=== PATIENT | male | born 1955 | race Caucasian/White ===

== ENCOUNTER 2025-01-21 08:46 | Day surgery (SDC) | payer BC, SELFPAY ==
[2025-01-21] VITALS (9 sets, daily range): BP systolic 127–148; BP diastolic 62–77; BMI 35.1
--- NOTE | 2025-01-21 08:20 | ITS.CL.CATH ---
[facility] - Catheterization
Cardiac Catheterization
Procedure Report:
LEFT AND RIGHT HEART CATHETERIZATION
Date of Procedure: January 21, 2025
Referring: Eric Hernandez MD
PROCEDURES:
1. Left heart catheterization, coronary angiogram.
2. Moderate sedation.
3. Right heart catheterization
INDICATION: Progressive dyspnea on exertion with an abnormal stress test
ACCESS: Right radial artery, 6Fr. sheath, under US guidance.
Right brachial vein, 6 Occitan sheath
HEMODYNAMICS : (mmHg)
RA (m) : 10
RV (s/d,m) :24/4; 8
PA (s/d, m) : 27/13, 19
PCWP (m) : 16
PA saturation: 75.8% on room air
AO saturation: 95.6% on room air
RA saturation: 73.7% on room air
Cardiac Output : 7.8 L/min
Cardiac Index : 3.63 L/min/m-2
Systemic vascular resistance: 427 dsc^(-5)
Pulmonary vascular resistance: 0.51 crouch unit
AO (s/d) : 97/50
LVEDP : 13
No significant gradient across the aortic valve to suggest aortic stenosis.
CORONARY FINDINGS
Dominance: Right
Left Main Trunk (LMT): Large caliber vessel that gives rise to the LAD and LCx branches and is free of angiographic disease.
Left Anterior Descending Artery (LAD): Large caliber vessel that gives off 2 major diagonal branches as it courses along the anterior inter-ventricular groove before wrapping around the cardiac apex. Mid LAD just distal to D1 takeoff has 30%
tubular smooth stenosis. Mid to distal LAD beyond D2 takeoff also has 30% tubular smooth stenosis.
Left Circumflex Artery (LCx): Large caliber vessel that gives off 1 major obtuse marginal (OM) branches as it courses along the atrio-ventricular (AV) groove. There is mild diffuse atherosclerotic plaque.
Right Coronary Artery (RCA): Large caliber dominant vessel that gives rise to the posterior descending artery (RPDA) and postero-lateral ventricular (RPLV) branches distally. There is mild diffuse atherosclerotic plaque.
SEDATION: 37 minutes of procedural sedation was utilized. IV Midazolam and IV Fentanyl were administered. An independent medical director of hospice was present to assist with and help manage the patient's level of consciousness and physiologic status.
RADIATION SUMMARY: Fluoro Time (min): 3.7, Dose (mGy): 418.46, DAP (Gy.cm2) : 26.25
Closure Device: There were no immediate intra-procedural complications. 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
CONCLUSIONS
1. No obstructive coronary artery disease.
2. Very mildly elevated right and left-sided filling pressures with normal cardiac output and very low systemic vascular resistance in the setting of sedation related hypotension procedurally.
3. LVEDP of 13 mmHg.
RECOMMENDATIONS
1. Wean radial band per protocol. Monitor right hand perfusion and for bleeding from the radial site following removal of the vascular-band following trans-radial access.
2. Continue aggressive medical therapy and risk factor modification for secondary CAD prevention.
3. Hydrate with normal saline to mitigate the risk of contrast-induced acute kidney injury.
4. Follow-up with Dr. Eric Hernandez
Copy to: Eirc Hernandez MD
Saba Martino MD, [facility], [facility]
[2025-01-21 09:19] LABS: Hematocrit 41.2 % (39.0-52.0); Hemoglobin 13.4 g/dL (13.0-18.0); Mean Corp Hgb Conc. 32.5 g/dL (33.0-37.0); Mean Corpuscular Volume 84.3 fL (80.0-94.0); Platelet Count 166 10^3/uL (130-400); Red Cell Dist. Width 13.9 % (11.5-14.5)
[2025-01-21] MEDS: LOW STRENGTH ASPIRIN 324 MG PO (10:04)
[2025-01-21 10:11] LABS: Glucose - Point of Care 113 mg/dl (70-99)
[2025-01-21] MEDS: NSS 314 ML IV (10:13)
[2025-01-21] MEDS: LASIX 20 MG IV (14:22)
== END 2025-01-21 16:45 | disposition home or self-care (01) ==
LOC: CATH 08:46
PROVIDERS: ATTENDING PHYSICIAN Internal Medicine Interventional Cardiology; FAMILY PHYSICIAN Family Medicine; OTHER PHYSICIAN Internal Medicine Cardiovascular Disease
DX: R06.09 Other forms of dyspnea (principal); I10 Essential (primary) hypertension; E11.9 Type 2 diabetes mellitus without complications; I49.5 Sick sinus syndrome; I48.19 Other persistent atrial fibrillation; I44.39 Other atrioventricular block; Z87.891 Personal history of nicotine dependence
CPT/HCPCS: 99152; 99153; 82962; 85027; 93460; C1769; C1894; Q9967

== ENCOUNTER 2025-04-02 07:40 | Day surgery (SDC) | payer BC, SELFPAY ==
[2025-03-13 09:57] VITALS: BMI 34.7
[2025-03-13 10:22] LABS: Hematocrit 41.3 % (39.0-52.0); Hemoglobin 13.9 g/dL (13.0-18.0); Mean Corp Hgb Conc. 33.7 g/dL (33.0-37.0); Mean Corpuscular Volume 82.1 fL (80.0-94.0); Nucleated Red Blood Cells % 0 % (-); Platelet Count 192 10^3/uL (130-400); Red Cell Dist. Width 13.6 % (11.5-14.5)
[2025-03-13 10:31] LABS: ALT (SGPT) 24 U/L (0-50); AST (SGOT) 22 U/L (17-59); Albumin 4.5 g/dl (3.5-5.0); Alkaline Phosphatase 66 U/L (38-126); Blood Urea Nitrogen 13 mg/dl (9-20); Calcium 9.8 mg/dl (8.4-10.2); Carbon Dioxide 27 mmol/L (22-30); Chloride 105 mmol/L (98-107); Estimated Creatinine Clearance 118 ml/min; Glucose 112 mg/dl (70-99); Magnesium 2.0 mg/dl (1.6-2.3); Potassium 4.7 mmol/L (3.5-5.1); Sodium 137 mmol/L (135-145); Total Protein 7.2 g/dl (6.3-8.2); eGFR > 60.00
[2025-03-13 10:32] LABS: INR 1.21; PT 15.9 Sec (11.4-14.6)
[2025-04-02] VITALS (11 sets, daily range): BP systolic 105–139; BP diastolic 41–74; BMI 33.9
[2025-04-02 08:58] LABS: Glucose - Point of Care 85 mg/dl (70-99)
--- NOTE | 2025-04-02 10:27 | ITS.CL.ABL ---
Emergency Department Nurse - Ablation
Ablation
Procedure Report:
Primary Director Of Conservation: Dr Eric Hernandez
Procedure Date: 04/02/2025
Patient History:
Patient is a pleasant 69-year-old male with a past medical history significant for hypertension, hyperlipidemia, sleep apnea with CPAP, diabetes mellitus type 2, obesity, sick sinus syndrome with dual-chamber pacemaker, symptomatic persistent atrial
fibrillation.
See H&P for complete details.
Indication:
Symptomatic persistent atrial fibrillation
Arrhythmia Specific History:
Prior Medical Therapies for Rate and Rhythm Control:
[ ] Beta-nettie
X Calcium channel-nettie
[ ] Amiodarone
[ ] Dronederone
[ ] Sotalol
[ ] Flecainide
[ ] Dofetilide
[ ] Options limited by bradycardia
[ ] Options limited by comorbid renal disease
Prior Procedural Therapies for AF/AFL:
[ ] Cardioversion
[ ] Pulmonary Vein Isolation
[ ] Posterior Wall Isolation
[ ] Additional lines (Specify)
[ ] Surgical Wade-MAZE or PVI (Specify)
Procedure Performed:
X AF ablation procedure (62037) -- includes LA/CS pacing, trans-septal, 3D mapping, + ICE
[ ] +IV drug (89475)
[ ] +Other Arrhythmia (80111)
[ ] +Other AF Line/ablation (52281)
Risks and expected recovery has been explained in detail. Alternative options have been explored, and in a shared-decision making fashion we have decided that this was the most appropriate procedure.
Method
NPO status confirmed. Grounding pad applied. Defibrillator pads applied. Continuous surface ECG, pulse oximetry, and blood pressure were monitored. Procedure was performed under general anesthesia, with anesthesia services.
Both groins were clipped, prepped with Chloraprep, and draped in sterile fashion. Time out was called. Local anesthesia administered. The right femoral vein was accessed for catheter placement, using ultrasound guidance (images saved to record),
micro-puncture needle/wire, and modified seldinger technique. 3 sheaths were placed. The following catheters were used:
[ ] Tacticath SE (D/F Curve) ablation catheter
X Viewflex 9Fr ICE catheter
X Inquiry decapolar 6Fr diagnostic catheter
[ ] CRD Hex 6Fr
X FlexCath Contour 10 Fr with PulseSelect PFA Catheter
X Advisor HD Grid Mapping Catheter, SE
[ ] Acuson AcuNav 8 Fr ICE catheter
[ ]Other: [ ]
Intracardiac ultrasound (ICE) was carefully advanced into the right atrium to guide sheath placement over a J-wire, catheter placement, guide trans-septal puncture, identify potential complications, identify anatomic structures and ensure proper
contact between ablation catheter and tissue.
Heparin was given prior to trans-septal puncture. Heparin was given to achieve and maintain a target ACT of 300-400 seconds throughout the procedure.
Careful navigation of patient's chronic device was performed under fluoroscopy ensuring sheaths were not in contact with patient's device wires. Trans-septal access was performed under ICE guidance. The trans-septal puncture was performed with a
SafeSept wire through a Brockenbrough needle assembly through the steerable sheath. The wire was visualized as it entered the LSPV and system advanced under ICE guidance and fluoroscopy into the LA. The Brockenbrough needle assembly, SafeSept wire
and sheath dilator were removed under negative pressure. LA pressure was measured and recorded.
ICE and 3D mapping was performed to identify relevant cardiac structures. A careful 3D map was created to assess for regions of low-voltage and abnormal electrogram signals using HD grid mapping catheter and PulseSelect catheter. Additional mapping
was performed as outlined below.
A 200 J synchronized direct-current cardioversion was performed for religion of sinus rhythm prior to electroanatomic mapping. Following mapping, PulseSelect catheter was advanced over J-wire to the ostium of each vein. Pulmonary vein isolation
was performed with ostial and antral lesions in a circumferential manner. Contact was visualized via EAM, ICE, fluoroscopy, and EGM signals.
Following completion of ablation lesions, a post-ablation voltage/activation map was performed in atrial pacing from patient's device. Acute reconnection was noted at the right inferior pulmonary vein. Repeat ablation was then performed in this
region. Repeat electroanatomic mapping demonstrated persistent block. Entrance and exit block were confirmed for each vein.
Catheter and sheath were removed from the left atrium and post-ablation intracardiac echo evaluation was consistent with pre-ablation with no changes and no pericardial effusion and there is no left atrial thrombus or left ventricle thrombus seen.
She is in catheters removed from the atria under fluoroscopic guidance to ensure device leads remained unchanged. Electrophysiology study was performed with burst pacing. No arrhythmias were induced. Hemostasis was obtained with figure of 8
stitch for each groin and with manual pressure. Protamine was used for reversal.
Estimated Blood Loss
5 mL
Complications
None
Fluoroscopy: 2.9 minutes; 9.37 mGy; DAP 1.91
LA Pressure: Pre 9 mmHg, post 12 mmHg
Baseline Intervals:
Rhythm: AF/TURN OUT
QRS: 175 ms
QT: 434 ms
QTc: 469 ms
Post-Procedure Intervals:
OK: 196 ms
QRS: 185 ms
QT: 267 ms
QTc: 453 ms
Recommendations
- Bedrest with straight-leg precautions as ordered
- Anticipate same day discharge if patient meeting clinical metrics
- Resume home medications as indicated
- Ok to resume anticoagulation tonight if patient and groin sites stable
- Plan for follow-up in office as scheduled
Luca Guerra DO, [facility], [facility]
Clinical Cardiac Supervisor [place]
cc: Dr Eric Hernandez; Dr Monroe Archer
[2025-04-02 11:11] LABS: ACT-LR - POC 292 Seconds (116-155)
[2025-04-02 11:28] LABS: ACT-LR - POC 314 Seconds (116-155)
[2025-04-02 11:43] LABS: ACT-LR - POC 269 Seconds (116-155)
[2025-04-02 11:59] LABS: ACT-LR - POC 300 Seconds (116-155)
[2025-04-02 12:08] LABS: Glucose - Point of Care 118 mg/dl (70-99)
[2025-04-02 12:21] LABS: ACT-LR - POC 261 Seconds (116-155)
[2025-04-02 13:08] LABS: Glucose - Point of Care 135 mg/dl (70-99)
--- NOTE | 2025-04-02 15:50 | W.PN.UPDATE ---
Update Note
Progress Note Update
Pt seen post PFA. Right groin site without ht/bleeding, non tender. OOB ambulating. Post EKG AVPaced 62, no acute changes. Resume xarelto tonight. Followup with Dr. Hernandez as scheduled. Home today if groin site/tele remain stable.
== END 2025-04-02 17:15 | disposition home or self-care (01) ==
LOC: CATH 07:40
PROVIDERS: ATTENDING PHYSICIAN Internal Medicine Cardiovascular Disease; FAMILY PHYSICIAN Family Medicine; OTHER PHYSICIAN Internal Medicine Cardiovascular Disease
DX: I48.21 Permanent atrial fibrillation (principal); I48.4 Atypical atrial flutter; I49.5 Sick sinus syndrome; I10 Essential (primary) hypertension; E78.5 Hyperlipidemia, unspecified; E66.9 Obesity, unspecified; Z68.34 Body mass index [BMI] 34.0-34.9, adult; E11.319 Type 2 diabetes mellitus with unspecified diabetic retinopathy without macular edema; G47.33 Obstructive sleep apnea (adult) (pediatric); H91.90 Unspecified hearing loss, unspecified ear; M19.90 Unspecified osteoarthritis, unspecified site; L71.9 Rosacea, unspecified; Z79.899 Other long term (current) drug therapy; Z79.01 Long term (current) use of anticoagulants; Z79.84 Long term (current) use of oral hypoglycemic drugs; Z95.0 Presence of cardiac pacemaker; E11.40 Type 2 diabetes mellitus with diabetic neuropathy, unspecified; Z90.49 Acquired absence of other specified parts of digestive tract; Z94.7 Corneal transplant status
CPT/HCPCS: C1732; C1894; C1730; C1769; C1766; C1759; 36415; 75572; 80053; 82962; 83735; 85025; 85347; 85610; 86850; 86900; 86901; 93005; 93656; C1733; Q9967